=== PATIENT | female | born 1935 | race Caucasian/White ===

== ENCOUNTER → 2020-01-03 | Outpatient (CLI) | payer MEDICARE ==
[~2020-01-03] MED LIST: ACET-458 PO; ATOR40TA78 PO; BUPR150T28 PO; DIPH25CA61 PO; DOCU-144 PO; FEXO1TAB25 PO; LEVO88TA4 PO; MULT-449 PO; VIT1CAPS42 PO; WARF-36 PO
== END | disposition home or self-care (01) ==
LOC: STAR 13:14
PROVIDERS: ATTEND Anesthesiology
DX: Z01.812 Encounter for preprocedural laboratory examination (principal); Z20.828 Contact with and (suspected) exposure to other viral communicable diseases
CPT/HCPCS: 36415; 87635

== ENCOUNTER 2020-01-07 09:54 | Inpatient (IN) | payer MEDICARE ==
[~2020-01-07] VITALS: Ht 157.5 cm; Wt 64.0 kg
[2020-01-07] MEDS ORDERED: LACTATED RINGERS 1,000 ML IV SCH ×2 (10:18→19:00)
[2020-01-07] MEDS ORDERED: CHLORHEXIDINE 15 ML UDC ONE (10:25)
[2020-01-07] MEDS ORDERED: CHLORHEXIDINE 15 ML UDC MM ONE (10:30)
[2020-01-07 10:52] LABS: INTERNATIONAL NORMALIZED RATIO 1.16 (0.93-1.1)
[2020-01-07] MEDS ORDERED: FENTANYL PF 250 MCG/5ML ONE (11:01)
[2020-01-07] MEDS ORDERED: hydrALAzine 20 MG/ML, 1ML ONE (11:25)
[2020-01-07] MEDS ORDERED: PROTAMINE SULFATE 10 MG/ML, 5ML ONE (11:50)
[2020-01-07] MEDS ORDERED: PAPAVERINE 30 MG/ML, 2ML ONE (11:50)
[2020-01-07] MEDS ORDERED: HEPARIN 1,000 UNITS/ML, 10ML ONE (11:50)
[2020-01-07] MEDS ORDERED: PHENYLEPHRINE 10 MG/ML ONE (12:44)
[2020-01-07] MEDS ORDERED: CEFAZOLIN 1,000 MG ONE (12:58)
[2020-01-07] MEDS ORDERED: DEXAMETHASONE 4 MG/ML, 1ML ONE (13:01)
[2020-01-07] MEDS ORDERED: LIDOCAINE-MPF 2% ,5ML ONE (13:36)
[2020-01-07] MEDS ORDERED: OXYcodone 5 MG/5 ML ORAL.SOL UDC PO PRN (14:30)
[2020-01-07] MEDS ORDERED: HYDROcodone/APAP 7.5-325MG/15ML UDC PO PRN (14:30)
[2020-01-07] MEDS ORDERED: morphine SULFATE 10 MG/ML, 1ML IVPush PRN (14:30)
[2020-01-07] MEDS ORDERED: ONDANSETRON 2MG/ML, 2ML IVPush PRN (14:30)
[2020-01-07] MEDS ORDERED: PROMETHAZINE 25 MG/ML, 1ML IVPush PRN (14:30)
[2020-01-07] MEDS ORDERED: LABETALOL 5MG/ML, 20ML IV PRN (14:30)
[2020-01-07] MEDS ORDERED: FENTANYL PF 100 MCG/2ML IV PRN (14:30)
[2020-01-07] MEDS ORDERED: hydrALAzine 20 MG/ML, 1ML IV PRN (14:30)
[2020-01-07] MEDS ORDERED: METOPROLOL 1 MG/ML, 5ML IV PRN (14:30)
[2020-01-07] MEDS ORDERED: HYDROmorphone 1 MG/ML, 1ML INJ IVPush PRN (14:30)
[2020-01-07] MEDS ORDERED: PROPOFOL 10 MG/ML, 20ML ONE (14:34)
[2020-01-07] MEDS ORDERED: ROCURONIUM 10 MG/ML,10ML ONE (14:34)
[2020-01-07] MEDS ORDERED: ONDANSETRON 2MG/ML, 2ML ONE (14:34)
[2020-01-07] MEDS ORDERED: LIDOCAINE 1%, 20ML ONE (14:42)
[2020-01-07] MEDS ORDERED: LIDOCAINE 1%, 20ML IM ONE (14:49)
[2020-01-07] MEDS ORDERED: OXYcodone 5 MG/5 ML ORAL.SOL UDC ONE (15:50)
[2020-01-07 18:15] VITALS: BP 109/68
[2020-01-07] MEDS ORDERED: HYDROcodone/APAP 5/325 TABLET PO PRN (19:00)
[2020-01-07] MEDS ORDERED: PHENYLEPHRINE 50 MG in SODIUM CHLORIDE 0.9% 245 ML IV SCH (19:00)
[2020-01-07] MEDS ORDERED: CETIRIZINE 10 MG TABLET PO PRN (19:00)
[2020-01-07] MEDS ORDERED: DOCUSATE 100 MG CAPSULE PO PRN (19:00)
[2020-01-07] MEDS ORDERED: LABETALOL 5MG/ML, 20ML IVPush PRN (19:00)
[2020-01-07 19:23] VITALS: BP 114/70
[2020-01-07] MEDS: ASPIRIN 81 MG TABLET EC PO SCH (19:35)
[2020-01-07] MEDS ORDERED: ATORVASTATIN 40 MG TABLET PO SCH (21:00)
[2020-01-07] MEDS: INSULIN REGULAR, HUMAN 100 UNIT/ML 3ML VIAL LOW DOSE SS SQ-INSULIN SCH (21:36)
[2020-01-08 00:44] VITALS: BP 106/61
[2020-01-08 04:00] VITALS: BP 104/62
[2020-01-08] MEDS: HEPARIN 5,000 UNITS/ML, 1ML SQ SCH ×2 (06:00→14:05)
[2020-01-08] MEDS: ASPIRIN 81 MG TABLET EC PO SCH (06:00)
[2020-01-08] MEDS ORDERED: LEVOTHYROXINE 88 MCG TABLET PO SCH (06:00)
[2020-01-08 08:04] VITALS: BP 130/78
[2020-01-08] MEDS: INSULIN REGULAR, HUMAN 100 UNIT/ML 3ML VIAL LOW DOSE SS SQ-INSULIN SCH ×2 (08:15→11:38)
[2020-01-08] MEDS ORDERED: MULTIVITAMIN 1 TABLET PO SCH (09:00)
[2020-01-08] MEDS ORDERED: BUPROPION SR 150 MG TABLET PO SCH (09:00)
[2020-01-08] MEDS ORDERED: [UNRECOGNIZED DRUG - OTHER] HOMEMEDPO SCH (09:00)
[2020-01-08 14:11] VITALS: BP 126/76
== END 2020-01-08 15:26 | disposition home or self-care (01) | DRG 39 ==
LOC: ORIP 09:54 → EDSTATUS 13:00 → 4NE 18:10
PROVIDERS: ADMIT Surgery; ATTEND Surgery
PROC: 03CL0ZZ Extirpation of Matter from Left Internal Carotid Artery, Open Approach (ICD-10-PCS; 2020-01-07)
PROC: 03CN0ZZ Extirpation of Matter from Left External Carotid Artery, Open Approach (ICD-10-PCS; 2020-01-07)
PROC: 03UJ0KZ Supplement Left Common Carotid Artery with Nonautologous Tissue Substitute, Open Approach (ICD-10-PCS; 2020-01-07)
PROC: 03UL0KZ Supplement Left Internal Carotid Artery with Nonautologous Tissue Substitute, Open Approach (ICD-10-PCS; 2020-01-07)
PROC: 03UN0KZ Supplement Left External Carotid Artery with Nonautologous Tissue Substitute, Open Approach (ICD-10-PCS; 2020-01-07)
PROC: 03CJ0ZZ Extirpation of Matter from Left Common Carotid Artery, Open Approach (ICD-10-PCS; principal; 2020-01-07 12:15)
DX: I65.22 Occlusion and stenosis of left carotid artery (principal); I10 Essential (primary) hypertension
CPT/HCPCS: 36415; 82962; 85347; 85610; 85730; 86850; 86870; 86900; 86922; 86923; 88300; G0378; J0690; J1100; J1644; J1815; J2405; J2704; J2720; J3010; C1768; J0360; J2370; J2440; J7120